=== PATIENT | male | born 1965 | race Caucasian/White ===

== ENCOUNTER 2017-10-17 15:44 | Emergency (ER) | payer OTHER ==
[~2017-10-17] VITALS: Ht 170.2 cm; Wt 117.0 kg
[~2017-10-17 15:44] MED LIST: ZOFRAN ODT4 MG PO
[2017-10-17 15:48] VITALS: BP 145/97
--- NOTE | 2017-10-17 16:16 | ED HAND/WRIST INJURY COMPLAINT ---
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 NO ACTIVE BLEEDINGIN TRIAGE. Triage Nurses Notes Reviewed? yes HPI: Patient tripped over his dog and caught himself on his outstretched hands. Patient got a fishhook stuck in the palm of his left hand. Patient is unsure when his last tetanus shot was. Patient states when he moves his left pinky and ring finger he can feel them moving inside. Patient is complaining of a sharp throbbing pain to his left palm. The pain is constant. There is no radiation. He rates the pain at 7 out of 10. Past History Travel History Traveled to [place] past 21 day No Medical History Any Pertinent Medical History? see below for history Neurological: NONE EENT: NONE Cardiovascular: hypertension, hyperlipidemia Respiratory: NONE Gastrointestinal: NONE Hepatic: NONE Renal: NONE Musculoskeletal: NONE Psychiatric: NONE Endocrine: DM TYPE II Blood Disorders: NONE Cancer(s): NONE HOME HEALTH PROVIDER/Reproductive: NONE Surgical History Surgical History: non-contributory Psychosocial History What is your primary language Nigerien Tobacco Use: Never used ETOH Use: denies use Illicit Drug Use: denies illicit drug use Family History Hx Contributory? No Review of Systems Review of Systems Constitutional: Reports: no symptoms. Respiratory: Reports: no symptoms. Cardiovascular: Reports: no symptoms. Musculoskeletal: Reports: see HPI. Neurological/Psychological: Reports: no symptoms. Immunologic/Allergic: Reports: no symptoms. Physical Exam Physical Exam General Appearance: well developed/nourished, alert, awake, mild distress Eyes: Bilateral: PERRL, EOMI. Cardiovascular/Respiratory: normal breath sounds, normal peripheral pulses, regular rate/rhythm, no respiratory distress Hand Left: FISHHOOK IN PALM OF LEFT HAND ALL THE WAY TO BASE OF HOOK Hand Right: normal inspection, normal range of motion Neurologic/Tendon: normal sensation, normal motor functions, normal tendon functions Progress Differential Diagnosis: FISHHOOK Plan of Care: Current Medications Sig/Mike Start time Last Medication Dose Stop Time Status Admin Ceftriaxone Sodium 1,000 MG ONCE ONE 10/17 1614 UNVr (Rocephin) 10/18 1615 Morphine Sulfate 4 MG ONCE ONE 10/17 1614 UNVr (Morphine) 10/18 1615 Tetanus/Diphtheria 0.5 ML ONCE ONE 10/17 1614 UNVr Toxoids Adsorbed 10/18 1615 (Decavac) Comments: Dog is embedded all the way up to the trifurcation of the other 2 hooks. There is not enough room to push the hook through to get the renetta out the other side. Dr. Cary has been consult did and he will begin to remove the hook. Departure Departure Disposition: HOME OR SELF CARE Condition: Stable Clinical Impression Primary Impression: Fish hook injury of hand Qualifiers: Encounter type: initial encounter Laterality: left Qualified Code: S69.92XA - Unspecified injury of left wrist, hand and finger(s), initial encounter Referrals: Marilyn SOMERS,Alireza Chatman (PCP/Family) Og SOMERS,Navin Yeboah Additional Instructions: TAKE AUGMENTIN PRESCRIBED TAKE PERCOCET NEEDED FOR PAIN REUTRN IF SYMPTOMS WORSEN OR FOR ANY CONCERNS Departure Forms: Customer Survey General Discharge Information Prescriptions: Current Visit Scripts Amoxicillin/Potassium Clav (Augmentin 875-125 Tablet) 1 TAB PO BID #20 TAB Oxycodone HCl/Acetaminophen (Percocet 5-325 MG Tablet) 1-2 TAB PO Q6P PRN PAIN #20 TAB
--- NOTE | 2017-10-17 17:30 | Cons- Plastic Surgery ---
General Information and HPI Consulting Request Date of Consult: 10/17/17 Requested By: Dr. 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 He avoided her by landing on a fishhook with his outstretched left hand. Emergency room has been unable to remove it. He complains of some pain complains of no numbness following the injury. 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 Surgical History Pertinent Surgical History: non-contributory Psychosocial History ETOH Use: denies use Illicit Drug Use: denies illicit drug use Review of Systems Review of Systems: All other systems negative Exam & Diagnostic Data Vital Signs and I&O Vital Signs Date Time Temp Pulse Resp B/P B/P Pulse O2 O2 Flow FiO2 Mean Ox Delivery Rate 10/17 1548 96.0 97 15 145/97 97 Room Air Room Air Intake & Output 10/17 1600 10/17 0800 10/17 0000 10/16 1600 10/16 0800 10/16 0000 Intake Total Output Total Balance Patient 258 lb Weight Weight Reported by Patient Measurement Method Physical Exam General Appearance: well developed/nourished, no apparent distress, alert, awake Head: atraumatic, normal appearance Eyes: Bilateral: normal appearance, PERRL, EOMI. Ears, Nose, Throat: normal pharynx, normal ENT inspection, hearing grossly normal Neck: normal inspection, supple, full range of motion Respiratory: chest non-tender, no respiratory distress Cardiovascular: regular rate/rhythm Peripheral Pulses: 2+ carotid (R), 2+ carotid (L) Gastrointestinal: soft, non-tender Back: normal inspection, normal range of motion Extremities: normal inspection (see below), normal capillary refill, normal range of motion, no edema Neurologic/Psych: no motor/sensory deficits, awake, alert, oriented x 3, normal gait, normal mood/affect Cranial Nerves: normal hearing, normal speech, PERRL Skin: intact (see below), normal color, warm/dry Lymphatic: no anterior cervical felipe Other Physical Findings: On his nondominant left hand over the hyperthenar eminence there is a fish hook passed the depth of its renetta. Range of motion full except for ring finger which has old history of trauma. Vascularity is intact. The patient has received previous lidocaine injection. No x-rays available. Assessment/Plan Assessment/Plan Retained foreign body patient accepts the risks of the procedure including infection pain numbness. Verbal informed consent was given. The area was anesthetized with lidocaine 1%. Incision was made to cover the bicarbonate was removed. Copious irrigation was carried out a small amount of skin was debrided from this surface. Sterile dressings were applied. The patient will be continued on antibiotics per emergency department and the patient is advised to follow-up in my office. Local instructions given in regards to wound care in detail. He has no questions. Consult Acknowledgment - Thank you for your consult request.
[2017-10-17] MEDS ORDERED: PERCOCET 5-3251 EACH PO (17:31)
[2017-10-17] MEDS ORDERED: AUGMENTIN 875-1 EACH PO (17:31)
== END 2017-10-17 17:40 ==
LOC: ERH 15:44
DX: S61.442A Puncture wound with foreign body of left hand, initial encounter (principal); W45.8XXA Other foreign body or object entering through skin, initial encounter; Y93.89 Activity, other specified; Y92.9 Unspecified place or not applicable
CPT/HCPCS: 90471; 90714; 96374; 96375; J0696